=== PATIENT | female | born 1955 | race American Indian/Alaskan Native ===

== ENCOUNTER 2016-12-27 08:21 | Outpatient (CLI) | payer BC ==
--- NOTE | 2016-12-27 16:34 | Mammography Report ---
BILATERAL DIGITAL SCREENING MAMMOGRAM with CAD: 12/27/16 08:21:00 CLINICAL: Routine screening. COMPARISON: 07/28/15 FINDINGS: There are bilateral scattered areas of fibroglandular density.No mass, architectural distortion or suspicious calcifications. IMPRESSION: No mammographic evidence of malignancy. BI-RADS CATEGORY: 1 -- Negative RECOMMENDATION: Routine mammographic screening in one year. COMMENT: Patient follow-up letters are generated by our [employer] application.
== END 2016-12-27 08:22 | disposition home or self-care (01) ==
LOC: SPVWC 08:21
PROVIDERS: ATTEND Internal Medicine
DX: Z12.31 Encounter for screening mammogram for malignant neoplasm of breast (principal)
CPT/HCPCS: 77067; G0202

== ENCOUNTER 2018-02-21 08:58 | Outpatient (CLI) | payer BC ==
--- NOTE | 2018-02-21 10:44 | Mammography Report ---
LEFT DIGITAL DIAGNOSTIC MAMMOGRAM and LEFT BREAST ULTRASOUND: 02/21/18 08:58:00 CLINICAL: Recalled for asymmetry. COMPARISON:02/01/18 screening FINDINGS: An oval partially circumscribed density persists on ML and MLO and CC spot magnification views.Portion of the margin is smooth and a portion is irregular. Ultrasound of the left breast demonstrated an oval slightly irregular cyst at 6 o'clock 3 cm from the nipple. It measures 7 x 4 x 7 mm. IMPRESSION: A probably benign 7 mm cyst at 6 o'clock left breast. BI-RADS CATEGORY: 3 - - Probably Benign RECOMMENDATION: 3 month followup left mammogram and left breast ultrasound if needed. ACR BI-RADS MAMMOGRAPHIC CODES: 0 = Needs additional imaging evaluation; 1 = Negative; 2 = Benign; 3 = Probably benign; 4 = Suspicious; 5 = Malignant; 6 = Known biopsy-proven malignancy COMMENT: 1. Dense breast tissue, i.e., adenosis, fibrocystic changes, etc., may obscure an underlying neoplasm. 2. Approximately 10% of cancers are not detected with mammography. 3. A negative mammography report should not delay biopsy if a clinically suspicious mass is present. COMMENT: Patient follow-up letters are generated via our [employer] application.
== END 2018-02-21 08:59 | disposition home or self-care (01) ==
LOC: SPVWC 08:58
PROVIDERS: ATTEND Internal Medicine
DX: N60.02 Solitary cyst of left breast (principal); I10 Essential (primary) hypertension; E78.5 Hyperlipidemia, unspecified; E03.9 Hypothyroidism, unspecified

== ENCOUNTER 2018-06-07 08:11 | Outpatient (CLI) | payer BC ==
--- NOTE | 2018-06-07 09:08 | Ultrasound Report ---
LEFT DIGITAL DIAGNOSTIC MAMMOGRAM with CAD and LEFT BREAST ULTRASOUND: 06/07/18 08:11:00 CLINICAL: Follow-up of a probably benign 7 mm slightly irregular cyst at 6 o'clock 3 cm from the nipple. COMPARISON:02/21/18 FINDINGS: Routine mammographic views demonstrate a stable oval partially circumscribed and partially smooth density at 6 o'clock. No associated architectural distortion or suspicious calcifications. Targeted ultrasound of the right breast demonstrated an oval slightly irregular complex cyst versus solid mass at 5 o'clock 5 cm from the nipple. It correlates with the IVC identified lesion and measures 7 x 6 x 5 mm. It has more internal echoes on this exam. IMPRESSION: A 7 mm complex cyst versus solid mass at 5 to 6 o'clock 3-5 cm from the nipple. The clock position and nipple distances vary slightly between mammography and ultrasound and between the stated position on the previous exam. However, this is clearly the same lesion. Recommend ultrasound guided needle aspiration and ultrasound guided needle core biopsy if fluid cannot be aspirated from the lesion. BI-RADS CATEGORY: 4--Suspicious The patient was informed of the recommendation for cyst aspiration at the time of exam. COMMENT: 1. Dense breast tissue, i.e., adenosis, fibrocystic changes, etc., may obscure an underlying neoplasm. 2. Approximately 10% of cancers are not detected with mammography. 3. A negative mammography report should not delay biopsy if a clinically suspicious mass is present. COMMENT: Patient follow-up letters are generated by our [employer] application.
== END 2018-06-07 08:12 | disposition home or self-care (01) ==
LOC: SPVWC 08:11
PROVIDERS: ATTEND Internal Medicine
DX: N60.02 Solitary cyst of left breast (principal); N60.01 Solitary cyst of right breast; I10 Essential (primary) hypertension; E78.5 Hyperlipidemia, unspecified; E03.9 Hypothyroidism, unspecified; Z90.710 Acquired absence of both cervix and uterus

== ENCOUNTER 2018-06-29 08:53 | Outpatient (CLI) | payer BC ==
--- NOTE | 2018-06-29 10:11 | Mammography Report ---
LEFT DIGITAL DIAGNOSTIC MAMMOGRAM: 06/29/18 08:53:00 CLINICAL: For clip placement immediately status post vacuum assisted ultrasound guided needle biopsy. COMPARISON:06/22/18 FINDINGS: A new biopsy clip is now identified at the site of the biopsy and the previously identified clip placed at the time of cyst aspiration has been removed. IMPRESSION: Concordant clip placement status post vacuum-assisted biopsy of a lesion at 5 o'clock. BI-RADS CATEGORY: 4--Suspicious Pathology pending.
--- NOTE | 2018-06-29 10:14 | Ultrasound Report ---
VACUUM ASSISTED ULTRASOUND GUIDED NEEDLE CORE BIOPSY WITH CLIP PLACEMENT LEFT BREAST: 06/29/18 08:53:00 CLINICAL: Status post left cyst aspiration 06/22/18. The cytology report describes hypercellular specimen with individual and clusters of ductal cells with mild atypia, suspicious for carcinoma. COMPARISON :06/22/18 FINDINGS: The procedure was explained to the patient and informed consent was obtained. Ultrasound demonstrated an oval solid hypoechoic mass with the biopsy clip at 5 o'clock 4 cm from the nipple. It measures 8 x 5 x 6 mm. The skin was prepped with Betadine and anesthetized with 1% lidocaine. Vacuum-assisted needle core biopsy was performed through a small dermatotomy using ultrasound guidance, 2% lidocaine with epinephrine for deep anesthesia and a 13-gauge Mammotome Elite biopsy probe. Multiple cores were obtained and placed in formalin. The previously placed localizer clip appeared to be removed with the biopsy. A Mammostar barbell shape clip was deployed within the lesion. Hemostasis was achieved with pressure at the site and a sterile dressing was applied. The patient tolerated the procedure well and there were no apparent complications. A two view mammogram demonstrated concordant clip placement and removal of the previously placed clip. The patient left the department in good condition with instructions for wound care and follow up. IMPRESSION: Uncomplicated vacuum-assisted ultrasound core biopsy and clip placement left breast.
== END 2018-06-29 08:54 | disposition home or self-care (01) ==
LOC: SPVWC 08:53
PROVIDERS: ATTEND Internal Medicine
DX: D05.12 Intraductal carcinoma in situ of left breast (principal); E78.5 Hyperlipidemia, unspecified; I10 Essential (primary) hypertension; Z90.710 Acquired absence of both cervix and uterus; Z83.3 Family history of diabetes mellitus; Z95.1 Presence of aortocoronary bypass graft; Z82.49 Family history of ischemic heart disease and other diseases of the circulatory system
CPT/HCPCS: 88305; 88341; 88342